=== PATIENT | male | born 2000 | race Caucasian/White ===

== ENCOUNTER 2019-08-03 12:12 | Emergency (ER) | payer MEDICAID ==
--- NOTE | 2019-08-03 12:29 | NUR ---
WASHER OFF: PT NOT IN LOBBY AT THIS TIME.
--- NOTE | 2019-08-03 12:38 | NUR ---
SANITATION MANAGER: PT NOT IN LOBBY FOR SECOND CALL AT THIS TIME.
--- NOTE | 2019-08-03 12:47 | NUR ---
NIL X3
== END 2019-08-03 12:48 | disposition left against medical advice (07) ==
LOC: ED 12:42
DX: R05 Cough (principal); Z53.21 Procedure and treatment not carried out due to patient leaving prior to being seen by health care provider